=== PATIENT | male | born 1975 | race Native Hawaiian/Other Pacific Islander ===

== ENCOUNTER 2016-10-10 12:16 | Emergency (ER) | payer BC ==
[~2016-10-10] VITALS: Ht 185.4 cm; Wt 120.2 kg
[2016-10-10 13:29] LABS: PLATELET COUNT 274 K/uL (142-355)
[2016-10-10 13:38] LABS: POTASSIUM 3.9 mmol/L (3.6-5.2); SODIUM 136 mmol/L (136-145)
== END 2016-10-10 14:00 | disposition home or self-care (01) ==
LOC: ED 12:16
DX: L03.818 Cellulitis of other sites (principal); S20.161A Insect bite (nonvenomous) of breast, right breast, initial encounter; Y92.89 Other specified places as the place of occurrence of the external cause; Y99.8 Other external cause status
CPT/HCPCS: 36415; 80053; 85027; 99283